=== PATIENT | female | born 1990 | race Caucasian/White ===

== ENCOUNTER → 2023-06-14 07:44 | Outpatient (REF) | payer OTHER, SELFPAY | LOC: HWRAD 07:44 | PROVIDERS: ATTENDING PHYSICIAN Internal Medicine Endocrinology, Diabetes & Metabolism; FAMILY PHYSICIAN Family Medicine | DX: E05.00 Thyrotoxicosis with diffuse goiter without thyrotoxic crisis or storm (principal) | CPT/HCPCS: 76536 ==

== ENCOUNTER → 2023-11-26 14:10 | Outpatient (REF) | payer OTHER, SELFPAY | LOC: RAD 14:10 | PROVIDERS: ATTENDING PHYSICIAN Internal Medicine Rheumatology; FAMILY PHYSICIAN Family Medicine | DX: M25.551 Pain in right hip (principal); M25.561 Pain in right knee; M79.7 Fibromyalgia | CPT/HCPCS: 73523; 73560; 73565 ==

== ENCOUNTER → 2024-04-01 08:17 | Outpatient (REF) | payer OTHER, SELFPAY | LOC: RCS 08:17 | PROVIDERS: ATTENDING PHYSICIAN Family Medicine | DX: R00.2 Palpitations (principal) | CPT/HCPCS: 93225; 93226 ==